=== PATIENT | male | born 1970 | race Caucasian/White ===

== ENCOUNTER → 2017-03-07 | Outpatient (CLI) | payer MEDICARE | LOC: LAB 09:14 | DX: E78.5 Hyperlipidemia, unspecified (principal) | CPT/HCPCS: 36415; 80061 ==

== ENCOUNTER → 2022-03-15 | Outpatient (CLI) | payer OTHER ==
[2022-03-15 11:15] LABS: HEMOGLOBIN 15.9 gm/dl (14.0-17.5); RED BLOOD COUNT 5.18 M/UL (4.20-5.50); WHITE BLOOD COUNT 6.1 K/UL (4.5-11.0)
[2022-03-15 11:43] LABS: BUN/CREATININE RATIO 19 (0-10)
== END ==
LOC: LAB 10:54
PROVIDERS: Nurse Practitioner Family
DX: E78.5 Hyperlipidemia, unspecified (principal); R53.83 Other fatigue; R07.89 Other chest pain; R63.1 Polydipsia
CPT/HCPCS: 36415; 80053; 82550; 82553; 82607; 83036; 84443; 84484; 85027

== ENCOUNTER → 2022-05-09 | Outpatient (CLI) | payer OTHER | LOC: RT 12:32 | DX: R07.9 Chest pain, unspecified (principal) | CPT/HCPCS: 93005 ==